=== PATIENT | female | born 1965 | race Caucasian/White ===

== ENCOUNTER 2020-11-20 01:09 | Emergency (ER) | payer OTHER ==
[~2020-11-20 01:09] MED LIST: ACETAZOLAMIDE500 MG PO; BACTRIM DS TAB1 EACH PO; CHANTIX1 MG PO; CYCLOBENZAPRINE10 MG PO; CYMBALTA20 MG PO; DICLOFENAC SODI75 MG PO; DUONEB 2.5-0.5M1 AMP NEB; GABAPENTIN400 MG PO; GABAPENTIN600 MG PO; HYDROCODON-ACE1 EAC2 PO; INVOKANA300 MG PO; LAXATIVE SUPPOS10 MG PR; LEVAQUIN500 MG PO; LEXAPRO20 MG PO; LIPITOR40 MG PO; MEDROL 4MG DOSEP4 MG PO; METFORMIN HCL500 MG PO; MIRALAX17 GM PO; MOBIC7.5 MG PO; MORPHINE 30MG E30 MG PO; MULTIVITAMINS1 EAC1 PO; NEBULIZER UNIT NEB; NEURONTIN400 MG PO; OXYCODON-ACETA1 EAC1 PO; PERCOCET 7.5/321 TAB PO; PREDNISONE5 MG PO; PRILOSEC20 MG PO; REQUIP1 MG PO; SYNTHROID88 MCG PO; TOPROL XL 50 MG50 MG PO; TRAZODONE HCL50 MG PO; ZESTRIL5 MG PO
[2020-11-20 01:56] LABS: BASOPHIL 0.3 % (0-2); EOSINOPHIL 2.5 % (0-5); HCT 35.4 % (37.0-47.0); HGB 10.9 g/dl (12.5-16.0); LYMPHOCYTE 12.4 % (15-48); MCH 28.3 pg (25.0-31.0); MCHC 30.8 g/dL (32.0-36.0); MCV 91.9 fL (78.0-100.0); MPV 12.1 fL (6.0-9.5); NEUTROPHIL 77.3 % (41-80); NRBC 0; PLT 246 K/uL (150-400); RBC 3.85 M/uL (4.20-5.40); RDW 15.6 % (11.5-14.0); WBC 15.4 K/uL (4.0-10.5)
[2020-11-20 01:57] LABS: ALBUMIN 3.4 g/dL (3.4-5.0); BILIRUBIN - TOTAL 0.2 mg/dL (0.2-1.0); BUN/CREAT RATIO (CALC) 16.8 RATIO; CREATININE 1.31 mg/dL (0.51-0.95); GLOBULIN (CALCULATION) 3.7 g/dL; POTASSIUM 4.3 mmol/L (3.5-5.1); TOTAL PROTEIN 7.1 g/dL (6.4-8.2)
[2020-12-02] MEDS ORDERED: OXYCODON-ACETA1 EAC1 PO (08:29)
== END 2020-11-20 03:32 | disposition home or self-care (01) ==
LOC: FER 01:09
PROVIDERS: Emergency Medicine
DX: R07.89 Other chest pain (principal); I10 Essential (primary) hypertension; E11.9 Type 2 diabetes mellitus without complications; E78.5 Hyperlipidemia, unspecified; E07.9 Disorder of thyroid, unspecified; F17.210 Nicotine dependence, cigarettes, uncomplicated; Z88.0 Allergy status to penicillin; Z88.8 Allergy status to other drugs, medicaments and biological substances; Z91.041 Radiographic dye allergy status; Z79.899 Other long term (current) drug therapy; Z79.84 Long term (current) use of oral hypoglycemic drugs
CPT/HCPCS: 36415; 71045; 80053; 83605; 84484; 85025; 87040; 93005; J1885; J2060

== ENCOUNTER 2020-12-09 21:17 | Inpatient (IN) | payer OTHER ==
[2020-12-09 21:40] LABS: BASOPHIL 0.5 % (0-2); HCT 39.3 % (37.0-47.0); LYMPHOCYTE 20.3 % (15-48); MCHC 30.5 g/dL (32.0-36.0); MCV 91.6 fL (78.0-100.0); MONOCYTE 7.2 % (0-12); MPV 11.9 fL (6.0-9.5); NEUTROPHIL 67.4 % (41-80); NRBC 0; PLT 251 K/uL (150-400); RBC 4.29 M/uL (4.20-5.40); RDW 15.4 % (11.5-14.0); WBC 11.1 K/uL (4.0-10.5)
[2020-12-09 21:51] LABS: IRON 63 ug/dL (50-170); SALICYLATE 3 mg/dL (2.8-20.0)
[2020-12-09 21:52] LABS: ACETAMINOPHEN (TYLENOL) 6.2 ug/mL (10.0-30.0); ALBUMIN 4.1 g/dL (3.4-5.0); ALKALINE PHOSHATASE 113 U/L (46-116); ALT 27 U/L (14-59); AST 10 U/L (15-37); BILIRUBIN - TOTAL 0.3 mg/dL (0.2-1.0); BUN 29 mg/dL (7-18); BUN/CREAT RATIO (CALC) 25.4 RATIO; CHLORIDE 101 mmol/L (98-107); CO2 (BICARBONATE) 27 mmol/L (21-32); CREATININE 1.14 mg/dL (0.51-0.95); GLOBULIN (CALCULATION) 3.7 g/dL; GLUCOSE 196 mg/dL (74-106); POTASSIUM 4.1 mmol/L (3.5-5.1); TOTAL PROTEIN 7.8 g/dL (6.4-8.2)
[2020-12-09 22:17] LABS: BILIRUBIN NEGATIVE (NEGATIVE); BLOOD NEGATIVE Ery/uL (NEGATIVE); CLARITY CLEAR (CLEAR); COLOR YELLOW (YELLOW); GLUCOSE (U) 3+ mg/dL (NORMAL); LEUKOCYTES NEGATIVE Leu/uL (NEGATIVE); NITRITE NEGATIVE (NEGATIVE); PROTEIN NEGATIVE (NEGATIVE); SPECIFIC GRAVITY <=1.005 (1.001-1.030); UROBILINOGEN 0.2 mg/dL (0.2-1.0); pH 6.5 (5.0-9.0)
[2020-12-09 22:20] LABS: AMPHETAMINES NEGATIVE (NEGATIVE); BARBITURATES NEGATIVE (NEGATIVE); ECSTASY (MDMA) NEGATIVE (NEGATIVE); MARIJUANA (THC) NEGATIVE (NEGATIVE); METHADONE NEGATIVE (NEGATIVE); OPIATES NEGATIVE (NEGATIVE); OXYCODONE POSITIVE (NEGATIVE)
[2020-12-10] MEDS ORDERED: METHYLPREDNISOLO4 M1 PO (04:15)
[2020-12-10] MEDS ORDERED: METFORMIN HCL500 MG PO (06:17)
[2020-12-10] MEDS ORDERED: LEVOCETIRIZINE D5 MG PO (06:19)
[2020-12-10] MEDS ORDERED: LEVETIRACETAM500 MG PO (06:19)
[2020-12-10] MEDS ORDERED: SYNTHROID88 MCG PO (06:20)
[2020-12-10] MEDS ORDERED: LIPITOR40 MG PO (06:21)
[2020-12-10] MEDS ORDERED: TOPROL XL50 MG PO (06:21)
[2020-12-10] MEDS ORDERED: GABAPENTIN600 MG PO (06:21)
[2020-12-10] MEDS ORDERED: ATARAX25 MG PO (06:22)
[2020-12-10] MEDS ORDERED: DIAMOX250 MG PO (06:23)
[2020-12-10] MEDS ORDERED: PROTONIX40 MG PO (06:23)
[2020-12-10] MEDS ORDERED: SINEQUAN50 MG PO (06:23)
[2020-12-10] MEDS ORDERED: LAXATIVE25 MG PO (06:24)
[2020-12-10] MEDS ORDERED: LYRICA 50MG CAP50 MG PO (06:24)
[2020-12-10] MEDS ORDERED: LASIX20 MG PO (06:24)
[2020-12-10] MEDS ORDERED: PRILOSEC20 MG PO (06:25)
[2020-12-10] MEDS ORDERED: JARDIANCE25 MG PO (06:25)
[2020-12-10] MEDS ORDERED: PERCOCET 7.5/321 TAB PO (06:25)
[2020-12-10] MEDS ORDERED: TRAZODONE 50MG50 MG PO (06:26)
[2020-12-10] MEDS ORDERED: REQUIP0.25 MG PO (06:27)
[2020-12-10] MEDS ORDERED: FLEXERIL5 MG PO (06:27)
[2020-12-10] MEDS ORDERED: LEXAPRO20 M1 PO (06:28)
[2020-12-10] MEDS ORDERED: MOBIC7.5 MG PO (06:28)
[2020-12-10] MEDS ORDERED: CHANTIX1 MG PO (06:28)
[2020-12-10] MEDS ORDERED: ZESTRIL5 MG PO (06:29)
[2020-12-10 06:46] LABS: BASOPHIL 0.5 % (0-2); EOSINOPHIL 2.8 % (0-5); HCT 41.9 % (37.0-47.0); HGB 11.7 g/dl (12.5-16.0); LYMPHOCYTE 17.5 % (15-48); MCH 28.1 pg (25.0-31.0); MCHC 27.9 g/dL (32.0-36.0); MCV 100.5 fL (78.0-100.0); MONOCYTE 8.2 % (0-12); MPV 11.6 fL (6.0-9.5); NEUTROPHIL 70.6 % (41-80); NRBC 0; PLT 194 K/uL (150-400); RBC 4.17 M/uL (4.20-5.40); RDW 15.6 % (11.5-14.0); WBC 10.5 K/uL (4.0-10.5)
[2020-12-10 07:17] LABS: ACETAMINOPHEN (TYLENOL) < 2.0 ug/mL (10.0-30.0); BUN 29 mg/dL (7-18); CHLORIDE 102 mmol/L (98-107); CO2 (BICARBONATE) 22 mmol/L (21-32); CREATININE 1.16 mg/dL (0.51-0.95); GLUCOSE 266 mg/dL (74-106); POTASSIUM 4.5 mmol/L (3.5-5.1)
--- NOTE | 2020-12-10 08:41 | NUR ---
PT ADMITTED TO ICU FOR ONE ON ONE OBSERVATION R/T SI. PT ADMITS TO TAKING 8-10 REQUIP, 12 PERCOCET, AND 8 GABAPENTIN. PT ALERT AND ORIENTED NOW, ON 2L VIA NC. REMAINS ON BICARB GTT AT 150CC/HR. BED LOCKED AND IN LOWEST POSITION WITH SIDE RAILS X2. ALL CANS AND METAL REMOVED FROM PT ROOM. PT EMOTIONS VERY LABILE.
--- NOTE | 2020-12-10 10:43 | NUR ---
RECEIVED REFERRAL REGARDIN PT HAVING AN INTENTIONAL OVERDOSE. MET WITH PT. SHE STATED THAT HER HAS BEEN YELLING AT HER AND TELLING HER HE DOESN'T LOVE HER FOR SOME TIME. AND SHE HAD ENOUGH AND TOOK SOME "PILLS" . PT. STATES THAT SHE AND OWN THEIR OWN HOME. THE DAUGHTER AND SON IN LAW AND THEIR FOUR CHILDREN ARE LIVING WITH THEM. THEY WERE TO ONLY BE THERE UNTIL THEIR TAX CHECK CAME AND THEN GET THEIR OWN PLACE, BUT THEY HAVE NOT MOVED OUT AND IT IS VERY STRESSFUL. PT. STATES THAT SHE HAS CHRONIC BACK AND HIP PAIN. SHE IS IN [facility]. SHE WALKS WITH A ROLLING WALKER AND CANE. SHE IS NOT IN COUNSELING. SHE DOES NOT WANT IT REPORTED THAT HER YELLS AT HER. SHE STATES THAT HER IS EMPLOYED. SHE DOES NOT RECEIVE ANY DISABILITY HER MAKES TO MUCH MONEY. THEY DO NOT RECIEVE ANY FOOD STAMPS. PT. WAS GIVEN INFORAMTION REGARDING COUNSELING RESOURCES, HELP IS HER, AND [facility] INFORMATION. PT. STATES HER OTHER 3 GROWN CHILDREN RESIDE IN [place]. SHE DOES HAVE A BEST FRIEND THAT SHE CAN STAY WITH. ADVISED PT. THAT SHE WILL BE INTERVIEWED BY A THERAPIST FROM [facility] FOR AN ADMISSION TO THE FACILITY. PT. STATED THAT SHE UNDERSTOOD.
--- NOTE | 2020-12-10 17:26 | NUR ---
PATIENT STATE SHE HAS A BAG OF DEPENDS AND SOME NIGHT CLOTHES MISSING. NONE LISTED ON BELONGINGS LIST. ER CALLED AND MIXED LIVESTOCK FARMER NOTIFIED.
--- NOTE | 2020-12-11 00:18 | NUR ---
LATE ENTRY 1950 PT ON THE PHONE WITH FRIEND, PT STATES THAT SOMEONE IS BRINGING HER CLOTHES. THIS NURSE INSTRUCTED TO HAVE FRIEND LEAVE BELONGINGS AT ER DESK AND THIS NURSE WOULD GO GET THEM. 1999 MALE FRIEND ARRIVED TO ROOM, PT STATES VISITOR IS FRIEND FROM WORK. FRIEND BROUGHT PT CLOTHES. THIS NURSE AT BEDSIDE DURING VISITATION. 0000 PT ON PHONE WITH FAMILY, THIS NURSE AND SITTER OVERHEAR PHONE CONVERSATION. PT STATES CAME TO SEE HER. "HE SNUCK UP HERE" THIS NURSE NOTIFIED NURSE DRY CLEANER PRESSER AND ER TO CALL UNIT PRIOR TO ALLOWING VISITOR UP.
[2020-12-11 04:33] LABS: BASOPHIL 0.6 % (0-2); EOSINOPHIL 2.6 % (0-5); HGB 10.5 g/dl (12.5-16.0); MCH 28.2 pg (25.0-31.0); MCV 94.1 fL (78.0-100.0); MONOCYTE 7.4 % (0-12); MPV 12.1 fL (6.0-9.5); NEUTROPHIL 66.8 % (41-80); NRBC 0; PLT 233 K/uL (150-400); RBC 3.72 M/uL (4.20-5.40); RDW 15.3 % (11.5-14.0); WBC 8.6 K/uL (4.0-10.5)
[2020-12-11 04:56] LABS: ALBUMIN 3.3 g/dL (3.4-5.0); BILIRUBIN - TOTAL 0.2 mg/dL (0.2-1.0); BUN/CREAT RATIO (CALC) 17.5 RATIO; CREATININE 1.03 mg/dL (0.51-0.95); GLOBULIN (CALCULATION) 3.5 g/dL; MAGNESIUM 2.3 mg/dL (1.8-2.4); POTASSIUM 4.2 mmol/L (3.5-5.1); TOTAL PROTEIN 6.8 g/dL (6.4-8.2)
--- NOTE | 2020-12-11 17:21 | NUR ---
[facility] UNABLE TO TAKE PATIENT BECAUSE SHE IS ON OXYGEN AT NIGHT. CURRENTLY LOOKING FOR OTHER OPTIONS FOR INPATIENT PLACEMENT. PATIENT VERBLIZES UNDERSTANDING OF NEED TO LOOK FOR OTHER PLACEMENT
--- NOTE | 2020-12-11 18:31 | NUR ---
CONTINUE TO AWAIT PLACEMENT AT A PSYCHIATRIC HOSPITAL. [facility] WILL LET STAFF KNOW WHEN BED AVAILABEL AT ANOTHER HOSPITAL. [facility] DOES NOT TAKE PATIENTS ON OXYGEN.
== END 2020-12-12 10:35 | DRG 917 ==
LOC: FER 21:17 → FICU 12-10 03:50 → FTCU 12-11 16:45
PROVIDERS: Emergency Medicine; Nurse Practitioner; ADMIT Internal Medicine
DX: T40.2X2A Poisoning by other opioids, intentional self-harm, initial encounter (principal); G92 Toxic encephalopathy; J96.01 Acute respiratory failure with hypoxia; J96.02 Acute respiratory failure with hypercapnia; Z68.41 Body mass index [BMI] 40.0-44.9, adult; T50.912A Poisoning by multiple unspecified drugs, medicaments and biological substances, intentional self-harm, initial encounter; T42.6X2A Poisoning by other antiepileptic and sedative-hypnotic drugs, intentional self-harm, initial encounter; T42.8X2A Poisoning by antiparkinsonism drugs and other central muscle-tone depressants, intentional self-harm, initial encounter; E66.1 Drug-induced obesity; I10 Essential (primary) hypertension; G89.4 Chronic pain syndrome; G47.33 Obstructive sleep apnea (adult) (pediatric); J44.9 Chronic obstructive pulmonary disease, unspecified; E66.01 Morbid (severe) obesity due to excess calories; I49.3 Ventricular premature depolarization; E03.9 Hypothyroidism, unspecified; Z20.822 Contact with and (suspected) exposure to COVID-19; K21.9 Gastro-esophageal reflux disease without esophagitis; M79.7 Fibromyalgia; F41.1 Generalized anxiety disorder; Z96.651 Presence of right artificial knee joint; Z90.710 Acquired absence of both cervix and uterus; Z90.49 Acquired absence of other specified parts of digestive tract; Z79.4 Long term (current) use of insulin; Z83.3 Family history of diabetes mellitus; Z80.3 Family history of malignant neoplasm of breast; Z82.49 Family history of ischemic heart disease and other diseases of the circulatory system; Z88.0 Allergy status to penicillin; Z88.8 Allergy status to other drugs, medicaments and biological substances; Z91.041 Radiographic dye allergy status
CPT/HCPCS: 36415; 36600; 71045; 80048; 80053; 80305; 81003; 82803; 82962; 83540; 83735; 84439; 84443; 84484; 85025; 93005; 94640; 94660; 94667; 94668; G0480; J1650; J2765; J3475; J7030; J7070; U0002

== ENCOUNTER 2021-07-02 17:47 | Emergency (ER) | payer OTHER ==
[~2021-07-02] VITALS: Ht 165.1 cm; Wt 107.0 kg
[~2021-07-02 17:47] MED LIST changes: +ATARAX25 MG PO; +DIAMOX250 MG PO; +FLEXERIL5 MG PO; +JARDIANCE25 MG PO; +LASIX20 MG PO; +LAXATIVE25 MG PO; +LEVETIRACETAM500 MG PO; +LEVOCETIRIZINE D5 MG PO; +LEXAPRO20 M1 PO; +LYRICA 50MG CAP50 MG PO; +METHYLPREDNISOLO4 M1 PO; +PROTONIX40 MG PO; +REQUIP0.25 MG PO; +SINEQUAN50 MG PO; +TOPROL XL50 MG PO; +TRAZODONE 50MG50 MG PO
[2021-07-02 18:55] LABS: BASOPHIL 0.4 % (0-2); EOSINOPHIL 3.1 % (0-5); HCT 43.2 % (37.0-47.0); HGB 13.2 g/dl (12.5-16.0); LYMPHOCYTE 25.6 % (15-48); MCH 27.8 pg (25.0-31.0); MCHC 30.6 g/dL (32.0-36.0); MCV 91.1 fL (78.0-100.0); MONOCYTE 6.4 % (0-12); MPV 11.7 fL (6.0-9.5); NEUTROPHIL 64.1 % (41-80); NRBC 0; PLT 243 K/uL (150-400); RBC 4.74 M/uL (4.20-5.40); RDW 15.4 % (11.5-14.0); WBC 7.8 K/uL (4.0-10.5)
[2021-07-02 19:17] LABS: BUN/CREAT RATIO (CALC) 16.9 RATIO; CREATININE 0.77 mg/dL (0.51-0.95); POTASSIUM 3.9 mmol/L (3.5-5.1)
== END 2021-07-02 21:45 | disposition home or self-care (01) ==
LOC: FER 17:47
PROVIDERS: Nurse Practitioner Family
DX: U07.1 COVID-19 (principal); J44.9 Chronic obstructive pulmonary disease, unspecified; E11.9 Type 2 diabetes mellitus without complications; I10 Essential (primary) hypertension; F17.210 Nicotine dependence, cigarettes, uncomplicated; Z23 Encounter for immunization; Z88.6 Allergy status to analgesic agent; Z88.0 Allergy status to penicillin; Z91.041 Radiographic dye allergy status
CPT/HCPCS: 36415; 80048; 85025; M0243; Q0244

== ENCOUNTER 2021-07-23 18:30 | Emergency (ER) | payer OTHER | END 2021-07-23 21:15 | disposition home or self-care (01) | LOC: FER 18:30 | DX: K12.0 Recurrent oral aphthae (principal); U07.1 COVID-19; I10 Essential (primary) hypertension; E11.9 Type 2 diabetes mellitus without complications; J44.9 Chronic obstructive pulmonary disease, unspecified; F17.210 Nicotine dependence, cigarettes, uncomplicated; Z88.0 Allergy status to penicillin; Z88.6 Allergy status to analgesic agent; Z91.041 Radiographic dye allergy status ==

== ENCOUNTER 2021-11-28 07:14 | Emergency (ER) | payer OTHER ==
[2021-11-28 08:15] LABS: BASOPHIL 0.5 % (0-2); EOSINOPHIL 2.2 % (0-5); HCT 41.4 % (37.0-47.0); HGB 12.6 g/dl (12.5-16.0); LYMPHOCYTE 22.6 % (15-48); MCHC 30.4 g/dL (32.0-36.0); MCV 88.7 fL (78.0-100.0); MONOCYTE 6.1 % (0-12); MPV 11.5 fL (6.0-9.5); NEUTROPHIL 68.3 % (41-80); NRBC 0; PLT 250 K/uL (150-400); RBC 4.67 M/uL (4.20-5.40); RDW 15.6 % (11.5-14.0); WBC 10.1 K/uL (4.0-10.5)
[2021-11-28 08:36] LABS: ALBUMIN 3.5 g/dL (3.4-5.0); BILIRUBIN - TOTAL 0.1 mg/dL (0.2-1.0); BUN/CREAT RATIO (CALC) 25.3 RATIO; CREATININE 0.83 mg/dL (0.51-0.95); GLOBULIN (CALCULATION) 3.8 g/dL; POTASSIUM 4.1 mmol/L (3.5-5.1); TOTAL PROTEIN 7.3 g/dL (6.4-8.2)
[2021-11-28] MEDS ORDERED: NAPROXEN500 MG PO (09:38)
== END 2021-11-28 10:11 | disposition home or self-care (01) ==
LOC: FER 07:14
PROVIDERS: Emergency Medicine
DX: S20.211A Contusion of right front wall of thorax, initial encounter (principal); E11.9 Type 2 diabetes mellitus without complications; J44.9 Chronic obstructive pulmonary disease, unspecified; I10 Essential (primary) hypertension; E66.9 Obesity, unspecified; F17.200 Nicotine dependence, unspecified, uncomplicated; Z28.311 Partially vaccinated for COVID-19; Z88.0 Allergy status to penicillin; Z88.8 Allergy status to other drugs, medicaments and biological substances; W19.XXXA Unspecified fall, initial encounter
CPT/HCPCS: 36415; 71250; 80053; 84484; 85025; 93005; J1885

== ENCOUNTER 2021-12-22 13:13 | Emergency (ER) | payer OTHER ==
[~2021-12-22 13:13] MED LIST changes: +NAPROXEN500 MG PO
[2021-12-22 14:02] LABS: BASOPHIL 0.6 % (0-2); LYMPHOCYTE 21.4 % (15-48); MCH 27.5 pg (25.0-31.0); MCHC 31.1 g/dL (32.0-36.0); MCV 88.4 fL (78.0-100.0); MONOCYTE 5.6 % (0-12); MPV 12.6 fL (6.0-9.5); NRBC 0; PLT 259 K/uL (150-400); RBC 5.09 M/uL (4.20-5.40); RDW 15.9 % (11.5-14.0); WBC 13.2 K/uL (4.0-10.5)
[2021-12-22 14:05] LABS: INR 0.87 (0.9-1.2); PROTHROMBIN TIME 11.3 SECONDS (11.8-13.4); PTT 28.6 SECONDS (24.4-34.7)
[2021-12-22 15:07] LABS: ALBUMIN 3.7 g/dL (3.4-5.0); BILIRUBIN - TOTAL 0.3 mg/dL (0.2-1.0); BUN/CREAT RATIO (CALC) 18.8 RATIO; CREATININE 0.69 mg/dL (0.51-0.95); GLOBULIN (CALCULATION) 3.9 g/dL; POTASSIUM 3.9 mmol/L (3.5-5.1); TOTAL PROTEIN 7.6 g/dL (6.4-8.2)
[2021-12-22 15:16] LABS: CORONAVIRUS 2019 SARS-COV-2 NEGATIVE (NEGATIVE); INFLUENZA A NAA NEGATIVE (NEGATIVE)
[2021-12-22] MEDS ORDERED: AZITHROMYCIN250 MG PO (16:57)
[2021-12-22] MEDS ORDERED: PREDNISONE 20MG20 MG PO (16:57)
== END 2021-12-22 17:37 | disposition home or self-care (01) ==
LOC: FER 13:13
PROVIDERS: Nurse Practitioner Family
DX: J44.1 Chronic obstructive pulmonary disease with (acute) exacerbation (principal); E11.9 Type 2 diabetes mellitus without complications; I10 Essential (primary) hypertension; F17.210 Nicotine dependence, cigarettes, uncomplicated; Z88.0 Allergy status to penicillin; Z88.6 Allergy status to analgesic agent; Z20.822 Contact with and (suspected) exposure to COVID-19
CPT/HCPCS: 36415; 71045; 80053; 84484; 85025; 85379; 85610; 85730; 93005; 94664; J2930; U0002